=== PATIENT | male | born 1990 | race Caucasian/White ===

== ENCOUNTER 2018-07-10 18:36 | Emergency (ER) | payer OTHER ==
[~2018-07-10] VITALS: Ht 188 cm; Wt 120.2 kg
[2018-07-10 18:38] VITALS: BP 124/86
--- NOTE | 2018-07-10 18:48 | NUR ---
ED Nurse Note: Pt came in due to right foot pain after twisting while playing soccer today. Pt still able to walk and no swelling. Pt is AAO x4, and ambulatory.
--- NOTE | 2018-07-10 18:58 | NUR ---
ED Nurse Note: electrical design technologist doing xray of foot.
--- NOTE | 2018-07-10 19:04 | NUR ---
HAND-OFF: Report given to Bailee FRAZIER.
--- NOTE | 2018-07-10 19:15 | NUR ---
ED Nurse Note: RECIEVED REPORT TO RESUME CARE, PT IN ROOM SITTING IN CHAIR, TP HAS HAD X-RAYS COMPLETTED AND WAITING FOR DISPO INFO, PT IS AWAKE, ALERT AND ORIENTED X 4, WILL RESUME CARE ORDERED AND CONTINUE TO CLOSELY MONITOR.
[2018-07-10 19:35] VITALS: BP 131/76
--- NOTE | 2018-07-10 19:38 | Emergency Room Report ---
History of Present Illness General Chief Complaint: Pain Source: Patient (Luis Carlos Oneill) Present Illness HPI 27-year-old male with no significant past medical history here complaining of pain in the right foot after he twisted his foot at soccer one day ago. Patient is rating the pain intermittent, without radiation, 5 out of 10 denying tingling and numbness. Is taken no medication for pain and has not used any other alleviating factors. Patient reports he had an ankle operation on the same side a year ago and this pain feels different and is not limited to his ankle. Denies all other injuries, chest pain, palpitation, S OB, and all other associated symptoms (Luis Carlos Oneill) Allergies: Coded Allergies: No Known Allergies (Unverified , 07/10/18) Patient History Past Medical History: see triage record Past Surgical History: unable to obtain Pertinent Family History: none Immunizations: UTD Reviewed Nursing Documentation: PMH: Agreed; PSxH: Agreed (Luis Carlos Oneill) Nursing Documentation-PMH Past Medical History: No Stated History (Luis Carlos Oneill) Review of Systems All Other Systems: negative except mentioned in HPI (Luis Carlos Oneill) Physical Exam Vital Signs Date Time Temp Pulse Resp B/P (MAP) Pulse Ox O2 Delivery O2 Flow Rate FiO2 07/10/18 18:38 98.1 75 18 124/86 94 Room Air Sp02 EP Interpretation: reviewed, normal General Appearance: normal inspection, well appearing, alert Head: normocephalic Eyes: bilateral eye normal inspection, bilateral eye PERRL ENT: normal ENT inspection, hearing grossly normal Neck: normal inspection, full range of motion Respiratory: normal inspection, lungs clear, no rhonchi, no wheezing Cardiovascular #1: normal inspection, normal peripheral pulses, regular rate, rhythm, normal capillary refill Cardiovascular #2: 2+ dorsalis pedis (R), 2+ dorsalis pedis (L) Gastrointestinal: normal inspection, normal bowel sounds Musculoskeletal: back normal, digits/nails normal, gait/station normal, normal range of motion, no calf tenderness, pelvis stable, other - right foot dorsum( hind foot) swelling Neurologic: normal inspection, alert Psychiatric: normal inspection, judgement/insight normal Skin: normal inspection, normal color, no rash, warm/dry Lymphatic: normal inspection, no adenopathy (Luis Carlos Oneill) Medical Decision Making PA Attestation All my diagnosis and treatment plans were reviewed ad discussed with my supervising physician Dr. Woodson (Luis Carlos Oneill) Diagnostic Impression: Primary Impression: Right foot sprain ER Course 27-year-old male with no significant past medical history here complaining of pain in the right foot after he twisted his foot at soccer one day ago. Patient is rating the pain intermittent, without radiation, 5 out of 10 denying tingling and numbness. Is taken no medication for pain and has not used any other alleviating factors. Patient reports he had an ankle operation on the same side a year ago and this pain feels different and is not limited to his ankle. Denies all other injuries, chest pain, palpitation, S OB, and all other associated symptoms Ddx considered but are not limited to: ankle sprain, ankle strain, ankle fracture, ankle contusion, foot sprain, foot strain, foot fx Vital signs: are WNL, pt. is afebrile H&PE are most consistent with: right foot sprain ORDERS: foot Xray, naproxen ED INTERVENTIONS: None required at this time. DISCHARGE: At this time pt. is stable for d/c to home. Will provide printed patient care instructions, and any necessary prescriptions. Care plan and follow up instructions have been discussed with the patient prior to discharge. Reading the x-ray with my supervising physician Dr. Woodson no fracture was detected patient to follow-up with her primary care provider (Luis Carlos Oneill) Other X-Ray Diagnostic Results Other X-Ray Diagnostic Results : X-Ray ordered: Right foot # of Views/Limited Vs Complete: 3 View Indication: Swelling EP Interpretation: Yes PA Xray: Interpretation reviewed, by supervising MD Interpretation: no dislocation, no soft tissue swelling, no fractures Impression: No acute disease Electronically Signed by: luis carlos best PA-C (Luis Carlos Oneill) Other X-Ray Diagnostic Results : Electronically Signed by: Karlie Marie documentation of Xray reviewed by me and is accurate, Akira Woodson MD (Akira Woodson MD) Last Vital Signs Date Time Temp Pulse Resp B/P (MAP) Pulse Ox O2 Delivery O2 Flow Rate FiO2 07/10/18 18:38 98.1 75 18 94 Room Air 07/10/18 18:38 124/86 (Luis Carlos Oneill) Disposition: HOME, SELF-CARE Condition: Stable Scripts Naproxen* (NAPROXEN*) 500 Mg Tablet 500 MG ORAL TWICE A DAY, #20 TAB Prov: Luis Carlos Oneill 07/10/18 Referrals: NOT CHOSEN IPA/,REFERRING (PCP) Patient Instructions: Foot Sprain Additional Instructions: Alternate between icing and heating the affected area, elevate, take anti- inflammatories as directed, if any new symptoms especially if numbness or tingling follow-up with a primary care provider for further imaging. At this point upon discussion with my supervising physician Dr. Woodson there is no fracture of your right foot. Luis Carlos Oneill July 10, 2018 19:38 Akira Woodson MD July 11, 2018 22:44
[2018-07-10] MEDS ORDERED: NAPROXEN500 M2 ORAL (19:39)
--- NOTE | 2018-07-10 19:51 | NUR ---
ER DISCHARGE NOTE: Patient is cleared to be discharged per ERMD, pt is aox4, on room air, with stable vital signs. pt was given dc and prescription instructions, pt was able to verbalize understanding, pt id band removed without complications. pt is able to ambulate with steady gait. pt took all belongings.
[2018-07-10 19:52] VITALS: BP 131/76
--- NOTE | 2018-07-11 11:44 | Diagnostic Imaging Report ---
Indication: Foot Pain Comparison: None Findings: 3 views of the right foot were obtained. No acute fractures, malalignment, erosions or periostitis are identified. 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 Soft tissues are unremarkable. Impression: No acute findings.
== END 2018-07-10 19:53 | disposition home or self-care (01) ==
LOC: EMR 19:05
DX: S93.601A Unspecified sprain of right foot, initial encounter (principal); X50.1XXA Overexertion from prolonged static or awkward postures, initial encounter; Y93.66 Activity, soccer; Y92.9 Unspecified place or not applicable
CPT/HCPCS: 99283